=== PATIENT | male | born 1960 | race Caucasian/White ===

== ENCOUNTER 2021-05-12 15:21 | Emergency (ER) | payer OTHER ==
[~2021-05-12 15:21] MED LIST: GLIMEPIRIDE4 MG PO; JARDIANCE10 MG PO; LIPITOR10 MG PO; METFORMIN HCL850 MG PO; PRILOSEC20 MG PO; TENORMIN50 MG PO; TRULICITY0.75 MG/0. SC; XALATAN2.5 ML OU; ZESTORETIC 20-1 EAC1 PO
[2021-05-12 16:31] LABS: BASOPHIL 0.9 % (0-2); EOSINOPHIL 2.7 % (0-5); HCT 40.5 % (42.0-52.0); HGB 14.8 g/dl (13.2-18.0); LYMPHOCYTE 13.9 % (15-48); MCH 32.3 pg (25.0-31.0); MCHC 36.5 g/dL (32.0-36.0); MCV 88.4 fL (78.0-100.0); MONOCYTE 6.8 % (0-12); MPV 10.9 fL (6.0-9.5); NEUTROPHIL 75.3 % (41-80); NRBC 0; PLT 144 K/uL (150-400); RBC 4.58 M/uL (4.70-6.00); WBC 6.8 K/uL (4.0-10.5)
[2021-05-12 16:54] LABS: CREATININE 1.41 mg/dL (0.67-1.17); POTASSIUM 4.8 mmol/L (3.5-5.1)
[2021-05-12 16:55] LABS: BILIRUBIN - TOTAL 0.4 mg/dL (0.2-1.0); TEGRETOL (CARBAMAZEPHINE) 5.3 ug/mL (4.0-12.0)
== END 2021-05-12 18:24 | disposition home or self-care (01) ==
LOC: FER 15:21
PROVIDERS: Emergency Medicine
DX: R55 Syncope and collapse (principal); R53.1 Weakness; E11.9 Type 2 diabetes mellitus without complications; I10 Essential (primary) hypertension; Z87.891 Personal history of nicotine dependence
CPT/HCPCS: 36415; 80053; 80156; 85025; J2270; J2405; J7030